=== PATIENT | female | born 1935 | race Caucasian/White ===

== ENCOUNTER 2018-12-14 05:49 | Emergency (ER) | payer MEDICARE, OTHER ==
[2018-12-14] MEDS ORDERED: Sodium Chloride 0.9% 500 ML IV ONE (06:27)
[2018-12-14] MEDS ORDERED: Ondansetron 4 MG/2 ML SDV IVPUSH ONE (06:27)
--- NOTE | 2018-12-14 06:33 | EDM.PDOC ---
<Tyron Boland - Last Filed: 12/14/18 06:49> ED HPI GENERAL MEDICAL PROBLEM - General Chief Complaint: Gastrointestinal Problem Stated Complaint: CONSTIPATION AND VOMITTING RECENT SURGERY ON MEDS Time Seen by Provider: 12/14/18 06:00 Source of Information: Reports: Patient, Family () History Limitations: Reports: No Limitations - History of Present Illness INITIAL COMMENTS - FREE TEXT/NARRATIVE: The patient is a pleasant 82-year-old woman who states that she was admitted to [facility] one week ago today, 12/07/2018, for debridement of a left elbow infection on 12/08/2018. She was discharged home on Sunday, with prescriptions for Bactrim DS, hydrocodone, and an anti-nausea medicine, however, she states that she is only taking the Bactrim DS, and that she has not taken any of the hydrocodone or anti-nausea medicine, because she has not needed them. She states that she has had constipation for the past 7 days (since before her surgery), although acknowledges that she suffers from chronic constipation. She then developed generalized abdominal cramps with nausea and vomiting around 20: 00 last night. She has not had a fever. She denies having urinary symptoms. She does not suffer from recurrent abdominal cramps, nausea, or vomiting. The patient's PCP is Dr. Hayde Ennis. Her Orthopedic Surgeon is Dr. Sheets. Abdominal Pain Score (Numeric/FACES): 3 - Related Data Allergies Allergy/AdvReac Type Severity Reaction Status Date / Time pantoprazole [From Protonix] Allergy Muscle Verified 12/14/18 05:59 Aches Home Meds: Home Meds Acetaminophen [Tylenol Arthritis Pain] 650 mg PO Q8H PRN 12/14/18 [History] Albuterol Sulfate [Albuterol Sulfate Hfa] 8.5 gm IH BID 12/14/18 [History] Allopurinol [Zyloprim] 100 mg PO TID 12/14/18 [History] Escitalopram [Lexapro] 20 mg PO DAILY 12/14/18 [History] Guaifenesin/Pseudoephedrne HCl [Guaifenesin-Pse ER 600-60 mg] 1 each PO WEEKLY 12/14/18 [History] Hydrocodone/Acetaminophen [Hydrocodon-Acetaminophen 5-325] 1 each PO Q4HR [History] Losartan [Cozaar] 50 mg PO DAILY 12/14/18 [History] Multivitamin [Multi-Vitamin Daily] 1 each PO DAILY 12/14/18 [History] [place]-3/DHA/Epa/Fish Oil [[place]-3 Fish Oil Softgel] 1 tab PO DAILY 12/14/18 [ History] Omeprazole 20 mg PO DAILY 12/14/18 [History] Rosuvastatin [Crestor] 5 mg PO DAILY 12/14/18 [History] Sulfamethoxazole/Trimethoprim [Sulfamethoxazole-Tmp Ds Tablet] 2 tab PO BID [History] Tolterodine Tartrate [Tolterodine Tartrate ER] 4 mg PO DAILY 12/14/18 [History] Ubidecarenone [Coq-10] 100 mg PO DAILY 12/14/18 [History] Vit A/C/E/Zinc/Selenium/Copper [Vision Formula Tablet] 1 each PO DAILY 12/14/18 [History] amLODIPine Besylate [Norvasc] 5 mg PO DAILY 12/14/18 [History] hydrOXYzine pamoate [Vistaril] 25 mg PO Q6H 12/14/18 [History] Past Medical History Cardiovascular History: Reports: High Cholesterol, Hypertension Gastrointestinal History: Reports: GERD 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: Musculoskeletal History: Reports: Arthritis, Fracture (right ankle) Psychiatric History: Reports: Depression - Past Surgical History HEENT Surgical History: Reports: Cataract Surgery (bilateral), Tonsillectomy GI Surgical History: Reports: Appendectomy, Colonoscopy (x 2 or 3), EGD (x 1) Female Surgical History: Reports: D&C (x 1), Hysterectomy (complete) Dermatological Surgical History: Reports: Other (See Below) (Left elbow debridement 12/08/2018) Social & Family History - Tobacco Use Smoking Status *Q: Never Smoker Second Hand Smoke Exposure: No - Caffeine Use Caffeine Use: Reports: None - Alcohol Use Alcohol Use History: Yes Alcohol Use Frequency: Socially - Recreational Drug Use Recreational Drug Use: No - Living Situation & Occupation Living situation: Reports: , with Spouse Occupation: Retired ED ROS GENERAL - Review of Systems Review Of Systems: ROS reveals no pertinent complaints other than HPI. ED EXAM, GI/ABD - Physical Exam Exam: See Below Exam Limited By: No Limitations General Appearance: Alert, WD/WN, No Apparent Distress Eyes: Bilateral: Normal Appearance, EOMI Ears: Normal External Exam, Hearing Loss Nose: Normal Inspection Throat/Mouth: Normal Inspection, Normal Lips, Normal Voice, No Airway Compromise Head: Atraumatic, Normocephalic Neck: Normal Inspection, Full Range of Motion Respiratory/Chest: No Respiratory Distress, Lungs Clear, Normal Breath Sounds, No Accessory Muscle Use Cardiovascular: Normal Peripheral Pulses, Regular Rate, Rhythm, No Edema, No Gallop, No JVD, No Murmur, No Rub GI/Abdominal Exam: Soft, Non-Tender, No Organomegaly, No Distention, No Abnormal Bruit, No Mass, Abnormal Bowel Sounds (diminished/rare), Other (Obese) (Female) Exam: Deferred Rectal (Female) Exam: Deferred Back Exam: Normal Inspection, Full Range of Motion, NT Extremities: Normal Inspection, Normal Range of Motion, No Pedal Edema, Normal Capillary Refill Neurological: Alert, Oriented, Normal Cognition, No Motor/Sensory Deficits Psychiatric: Normal Affect Skin Exam: Warm, Dry, Intact, Normal Color, No Rash Course - Vital Signs Last Recorded V/S: Last Vital Signs Temp 36.3 C 12/14/18 05:58 Pulse 102 H 12/14/18 05:58 Resp 18 12/14/18 05:58 BP 163/77 H 12/14/18 05:58 Pulse Ox 100 12/14/18 05:58 - Orders/Labs/Meds Orders: Active Orders 24 hr Category Date Time Status KUB [Abdomen 1V Flat] [CR] Stat Exams 12/14/18 06:26 Taken Labs: Laboratory Tests 12/14/18 12/14/18 12/14/18 Range/Units 06:44 06:44 06:44 WBC 11.42 H (3.98-10.04) K/mm3 RBC 3.77 L (3.98-5.22) M/mm3 Hgb 11.0 L (11.2-15.7) gm/L Hct 32.3 L (34.1-44.9) % MCV 85.7 (79.4-94.8) fl MCH 29.2 (25.6-32.2) pg MCHC 34.1 (32.2-35.5) g/dl RDW Std Deviation 39.4 (36.4-46.3) fL Plt Count 502 H (182-369) K/mm3 MPV 7.5 L (9.4-12.3) fl Neutrophils % (Manual) 86 H (40-60) % Band Neutrophils % 0 (0-10) % Lymphocytes % (Manual) 9 L (20-40) % Atypical Lymphs % 0 % Monocytes % (Manual) 5 (2-10) % Eosinophils % (Manual) 0 L (0.7-5.8) % Basophils % (Manual) 0 L (0.1-1.2) Platelet Estimate Increased RBC Morph Comment Normal Sodium 129 L (136-145) mEq/L Potassium 4.0 (3.5-5.1) mEq/L Chloride 94 L (98-107) mEq/L Carbon Dioxide 20 L (21-32) mEq/L Anion Gap 19.0 H (5-15) BUN 16 (7-18) mg/dL Creatinine 1.0 (0.55-1.02) mg/dL Est Cr Clr Drug Dosing 32.23 mL/min Estimated GFR (MDRD) 53 (>60) mL/min BUN/Creatinine Ratio 16.0 (14-18) Glucose 101 (83-115) mg/dL Calcium 8.4 L (8.5-10.1) mg/dL Magnesium 2.1 (1.8-2.4) mg/dl Total Bilirubin 0.4 (0.2-1.0) mg/dL AST 28 (15-37) U/L ALT 26 (14-59) U/L Alkaline Phosphatase 65 (46-116) U/L C-Reactive Protein 1.5 H* (<1.0) mg/dL Total Protein 7.1 (6.4-8.2) g/dl Albumin 3.3 L (3.4-5.0) g/dl Globulin 3.8 gm/dL Albumin/Globulin Ratio 0.9 L (1-2) Urine Color (Yellow) Urine Appearance (Clear) Urine pH (5.0-8.0) Ur Specific [place] (1.005-1.030) Urine Protein (Negative) Urine Glucose (UA) (Negative) Urine Ketones (Negative) Urine Occult Blood (Negative) Urine Nitrite (Negative) Urine Bilirubin (Negative) Urine Urobilinogen (0.2-1.0) Ur Leukocyte Esterase (Negative) Urine RBC (0-5) /hpf Urine WBC (0-5) /hpf Ur Epithelial Cells (0-5) /hpf Urine Bacteria (FEW) /hpf Urine Mucus (FEW) /hpf 12/14/18 Range/Units 08:25 WBC (3.98-10.04) K/mm3 RBC (3.98-5.22) M/mm3 Hgb (11.2-15.7) gm/L Hct (34.1-44.9) % MCV (79.4-94.8) fl MCH (25.6-32.2) pg MCHC (32.2-35.5) g/dl RDW Std Deviation (36.4-46.3) fL Plt Count (182-369) K/mm3 MPV (9.4-12.3) fl Neutrophils % (Manual) (40-60) % Band Neutrophils % (0-10) % Lymphocytes % (Manual) (20-40) % Atypical Lymphs % % Monocytes % (Manual) (2-10) % Eosinophils % (Manual) (0.7-5.8) % Basophils % (Manual) (0.1-1.2) Platelet Estimate RBC Morph Comment Sodium (136-145) mEq/L Potassium (3.5-5.1) mEq/L Chloride (98-107) mEq/L Carbon Dioxide (21-32) mEq/L Anion Gap (5-15) BUN (7-18) mg/dL Creatinine (0.55-1.02) mg/dL Est Cr Clr Drug Dosing mL/min Estimated GFR (MDRD) (>60) mL/min BUN/Creatinine Ratio (14-18) Glucose (83-115) mg/dL Calcium (8.5-10.1) mg/dL Magnesium (1.8-2.4) mg/dl Total Bilirubin (0.2-1.0) mg/dL AST (15-37) U/L ALT (14-59) U/L Alkaline Phosphatase (46-116) U/L C-Reactive Protein (<1.0) mg/dL Total Protein (6.4-8.2) g/dl Albumin (3.4-5.0) g/dl Globulin gm/dL Albumin/Globulin Ratio (1-2) Urine Color Yellow (Yellow) Urine Appearance Clear (Clear) Urine pH 6.5 (5.0-8.0) Ur Specific [place] > or = 1.030 (1.005-1.030) Urine Protein Negative (Negative) Urine Glucose (UA) Negative (Negative) Urine Ketones 2+ H (Negative) Urine Occult Blood Negative (Negative) Urine Nitrite Negative (Negative) Urine Bilirubin 1+ H (Negative) Urine Urobilinogen 1.0 (0.2-1.0) Ur Leukocyte Esterase Negative (Negative) Urine RBC 0-5 (0-5) /hpf Urine WBC 0-5 (0-5) /hpf Ur Epithelial Cells 0-5 (0-5) /hpf Urine Bacteria Rare (FEW) /hpf Urine Mucus Not seen (FEW) /hpf Meds: Medications Discontinued Medications Generic Name Dose Route Start Last Admin Trade Name Freq PRN Reason Stop Dose Admin Sodium Chloride 500 mls @ 1,000 mls/hr 12/14/18 06:27 12/14/18 06:44 Normal Saline IV 12/14/18 06:56 1,000 mls/hr .BOLUS ONE Administration Magnesium Citrate 180 ml 12/14/18 07:51 12/14/18 08:04 Citrate Of Magnesia PO 12/14/18 07:52 180 ml ONETIME ONE Administration Metoclopramide HCl 5 mg 12/14/18 08:40 12/14/18 08:44 Reglan IVPUSH 12/14/18 08:41 5 mg ONETIME ONE Administration Ondansetron HCl 4 mg 12/14/18 06:27 12/14/18 06:43 Zofran IVPUSH 12/14/18 06:28 4 mg ONETIME ONE Administration - Re-Assessments/Exams Free Text/Narrative Re-Assessment/Exam: 12/14/18 06:28 The patient has diminished bowel sounds on auscultation of her abdomen, although I do not appreciate any tenderness to palpation. Constipation could cause generalized abdominal cramps, but it should not cause nausea and vomiting , therefore I have ordered blood work, a urinalysis, and a KUB to evaluate. 12/14/18 07:[address] Joshua, and care of the patient turned over to him at this time, for change of shift. Departure - Departure Disposition: Home, Self-Care 01 Clinical Impression: Constipation by delayed colonic transit, Hyponatremia with decreased serum osmolality, Dehydration with hyponatremia Abdominal pain Qualifiers: Abdominal location: periumbilical Qualified Code(s): R10.33 - Periumbilical pain - Discharge Information *PRESCRIPTION DRUG MONITORING PROGRAM REVIEWED*: Not Applicable *COPY OF PRESCRIPTION DRUG MONITORING REPORT IN PATIENT SUDEEP: Not Applicable Instructions: Hyponatremia, [id number], Dehydration, Adult, [id number], Constipation, Adult Referrals: Hayde Ennis MD [Primary Care Provider] - Forms: ED Department Discharge Additional Instructions: Evaluation the emergency room today in regards to development of diffuse cramping abdominal pain associated then with nausea and vomiting. This resulted primarily due to constipation with increased stool in the left hemicolon and rectum. As you identified your bowels been very sluggish have not moved much in the last week or so. Suspect the pain was precipitated by oral laxative use. Pain precipitated nausea and vomiting. Lab tests reveal mild dehydration and low serum sodium level which we call hyponatremia. From drinking too much water not enough juices or other foods containing salts. X-ray of the abdomen just showed the constipation as we mentioned. Treatment in the ED was medication Zofran 4 mg to stop vomiting. He went away on its own as it often does with intestinal colic and comes back a few hours later. You're given Citroma or magnesium citrate 6 ounces in the emergency department which will take about an hour to 2 hours to work normally can bowels work 2 or 3 times. This should and abdominal pain problems. Low serum sodium level was partially corrected by intravenous fluids given in the ED. You need to drink a bottle or 2 of Gatorade today to replenish your serum sodium level and correct dehydration completely. May continue use Zofran 4 mg under tongue every 4 hours as needed for further nausea relief. Return to the ED if abdominal pain recurs after bowel cleanse. Continue antibiotics as previously prescribed for infection left elbow. <Koby Joshua - Last Filed: 12/14/18 09:01> Course - Orders/Labs/Meds Labs: Laboratory Tests 12/14/18 12/14/18 12/14/18 Range/Units 06:44 06:44 06:44 WBC 11.42 H (3.98-10.04) K/mm3 RBC 3.77 L (3.98-5.22) M/mm3 Hgb 11.0 L (11.2-15.7) gm/L Hct 32.3 L (34.1-44.9) % MCV 85.7 (79.4-94.8) fl MCH 29.2 (25.6-32.2) pg MCHC 34.1 (32.2-35.5) g/dl RDW Std Deviation 39.4 (36.4-46.3) fL Plt Count 502 H (182-369) K/mm3 MPV 7.5 L (9.4-12.3) fl Neutrophils % (Manual) 86 H (40-60) % Band Neutrophils % 0 (0-10) % Lymphocytes % (Manual) 9 L (20-40) % Atypical Lymphs % 0 % Monocytes % (Manual) 5 (2-10) % Eosinophils % (Manual) 0 L (0.7-5.8) % Basophils % (Manual) 0 L (0.1-1.2) Platelet Estimate Increased RBC Morph Comment Normal Sodium 129 L (136-145) mEq/L Potassium 4.0 (3.5-5.1) mEq/L Chloride 94 L (98-107) mEq/L Carbon Dioxide 20 L (21-32) mEq/L Anion Gap 19.0 H (5-15) BUN 16 (7-18) mg/dL Creatinine 1.0 (0.55-1.02) mg/dL Est Cr Clr Drug Dosing 32.23 mL/min Estimated GFR (MDRD) 53 (>60) mL/min BUN/Creatinine Ratio 16.0 (14-18) Glucose 101 (83-115) mg/dL Calcium 8.4 L (8.5-10.1) mg/dL Magnesium 2.1 (1.8-2.4) mg/dl Total Bilirubin 0.4 (0.2-1.0) mg/dL AST 28 (15-37) U/L ALT 26 (14-59) U/L Alkaline Phosphatase 65 (46-116) U/L C-Reactive Protein 1.5 H* (<1.0) mg/dL Total Protein 7.1 (6.4-8.2) g/dl Albumin 3.3 L (3.4-5.0) g/dl Globulin 3.8 gm/dL Albumin/Globulin Ratio 0.9 L (1-2) Urine Color (Yellow) Urine Appearance (Clear) Urine pH (5.0-8.0) Ur Specific [place] (1.005-1.030) Urine Protein (Negative) Urine Glucose (UA) (Negative) Urine Ketones (Negative) Urine Occult Blood (Negative) Urine Nitrite (Negative) Urine Bilirubin (Negative) Urine Urobilinogen (0.2-1.0) Ur Leukocyte Esterase (Negative) Urine RBC (0-5) /hpf Urine WBC (0-5) /hpf Ur Epithelial Cells (0-5) /hpf Urine Bacteria (FEW) /hpf Urine Mucus (FEW) /hpf 12/14/18 Range/Units 08:25 WBC (3.98-10.04) K/mm3 RBC (3.98-5.22) M/mm3 Hgb (11.2-15.7) gm/L Hct (34.1-44.9) % MCV (79.4-94.8) fl MCH (25.6-32.2) pg MCHC (32.2-35.5) g/dl RDW Std Deviation (36.4-46.3) fL Plt Count (182-369) K/mm3 MPV (9.4-12.3) fl Neutrophils % (Manual) (40-60) % Band Neutrophils % (0-10) % Lymphocytes % (Manual) (20-40) % Atypical Lymphs % % Monocytes % (Manual) (2-10) % Eosinophils % (Manual) (0.7-5.8) % Basophils % (Manual) (0.1-1.2) Platelet Estimate RBC Morph Comment Sodium (136-145) mEq/L Potassium (3.5-5.1) mEq/L Chloride (98-107) mEq/L Carbon Dioxide (21-32) mEq/L Anion Gap (5-15) BUN (7-18) mg/dL Creatinine (0.55-1.02) mg/dL Est Cr Clr Drug Dosing mL/min Estimated GFR (MDRD) (>60) mL/min BUN/Creatinine Ratio (14-18) Glucose (83-115) mg/dL Calcium (8.5-10.1) mg/dL Magnesium (1.8-2.4) mg/dl Total Bilirubin (0.2-1.0) mg/dL AST (15-37) U/L ALT (14-59) U/L Alkaline Phosphatase (46-116) U/L C-Reactive Protein (<1.0) mg/dL Total Protein (6.4-8.2) g/dl Albumin (3.4-5.0) g/dl Globulin gm/dL Albumin/Globulin Ratio (1-2) Urine Color Yellow (Yellow) Urine Appearance Clear (Clear) Urine pH 6.5 (5.0-8.0) Ur Specific [place] > or = 1.030 (1.005-1.030) Urine Protein Negative (Negative) Urine Glucose (UA) Negative (Negative) Urine Ketones 2+ H (Negative) Urine Occult Blood Negative (Negative) Urine Nitrite Negative (Negative) Urine Bilirubin 1+ H (Negative) Urine Urobilinogen 1.0 (0.2-1.0) Ur Leukocyte Esterase Negative (Negative) Urine RBC 0-5 (0-5) /hpf Urine WBC 0-5 (0-5) /hpf Ur Epithelial Cells 0-5 (0-5) /hpf Urine Bacteria Rare (FEW) /hpf Urine Mucus Not seen (FEW) /hpf - Re-Assessments/Exams Free Text/Narrative Re-Assessment/Exam: 12/14/18 07:07 Care has been assumed from Dr Boland at change of shift. KUB reveals mild stool in the rectal vault. air distending Rt ascending colon mildly. No free air. No signs of bowl obstruction. 12/14/18 07:12: I have gone to the history with the patient she in fact has been taking laxatives. She did take some on one on Sunday and her husbands what she calls heavy-duty laxative yesterday. So therefore I suspect the abdominal cramping pain was secondary to laxative use. She is pain-free at this time. Examination of her abdomen again is benign with no active bowel sounds. I suspect intestinal colic caused her pain and nausea and vomiting. Await the labs. 12/14/18 07:35 Total white count is 11.42 with 86% neutrophils reported and no band cells. Hemoglobin is 11.0 with hematocrit of 32.3. Platelet count is 502, 000 mildly increased. 12/14/18 07:47Chemistry is now back. Sodium is low at 129. Potassium is okay at 4.0. Chloride is low at 94. Bicarbonate is 20. Anion gap is 19.0. BUN is 16 with a creatinine of 1.0. Glucose is 101 with a calcium of 8.4. Magnesium is 2.1. Liver function is normal. C-reactive protein is 1.5. Total protein is 7.1 with an albumin fraction of 3.3. Labs reveal the patient is hyponatremic and on questioning she does admit to drinking a lot of water try to get her bowels to work and not much juices. She has not been eating normally either. Elevated anion gap is partially due to volume depletion from vomiting. She really has received a 500 milk fluid bolus but will receive the rest of the liter of IV fluids. Will be given magnesium citrate 6 ounces by mouth now with 6 ounces of juice to make sure that it stays down. 12/14/18 08:42 has completed liter of IV fluids. Is a little nauseated at this time likely from the magnesium citrate. We'll give her Reglan 5 mg IV for nausea relief. She is feeling better she will be discharged to home as she has Zofran sublingual tablets available to her at home. Urinalysis shows 2+ ketonuria but no signs of infection. Departure - Departure Time of Disposition: 08:39 Condition: Fair - Discharge Information *PRESCRIPTION DRUG MONITORING PROGRAM REVIEWED*: Not Applicable *COPY OF PRESCRIPTION DRUG MONITORING REPORT IN PATIENT SUDEEP: Not Applicable
[2018-12-14] MEDS ORDERED: Magnesium Citrate Solution 296 ML Bottle PO ONE (07:51)
[2018-12-14] MEDS ORDERED: Metoclopramide 10 MG/2 ML SDV IVPUSH ONE (08:40)
--- NOTE | 2018-12-16 07:00 | CR ---
Abdomen: Supine view of the abdomen was obtained. Comparison: No prior abdominal x-ray. Scoliosis and degenerative change are noted within the spine. Bowel gas pattern appears normal. Calcifications are seen within the pelvis which are compatible with phleboliths. Surgical clips are seen within both groin regions. Visualized lung bases show nothing acute. Impression: 1. Findings believed to be incidental as noted above. Nothing acute is appreciated. Diagnostic code #2
== END 2018-12-14 09:10 | disposition home or self-care (01) ==
LOC: JD.ED 05:49
DX: K59.01 Slow transit constipation (principal); E87.1 Hypo-osmolality and hyponatremia; E86.0 Dehydration; I10 Essential (primary) hypertension; K21.9 Gastro-esophageal reflux disease without esophagitis; F32.9 Major depressive disorder, single episode, unspecified; Z88.8 Allergy status to other drugs, medicaments and biological substances; Z98.41 Cataract extraction status, right eye; Z98.42 Cataract extraction status, left eye; Z98.890 Other specified postprocedural states; Z90.49 Acquired absence of other specified parts of digestive tract; Z90.710 Acquired absence of both cervix and uterus
CPT/HCPCS: 36415; 74018; 80053; 81001; 83735; 85007; 85027; 86140; 96361; 96374; 96375; 99284; A9270; J2405; J2765; J7040